=== PATIENT | male | born 1945 | race Caucasian/White ===

== ENCOUNTER → 2023-05-26 06:22 | Day surgery (SDC) | payer MEDICARE, BC, SELFPAY | LOC: GI 06:22 | PROVIDERS: ATTENDING PHYSICIAN Internal Medicine Gastroenterology; FAMILY PHYSICIAN Family Medicine | DX: R19.4 Change in bowel habit (principal); K64.0 First degree hemorrhoids; K57.30 Diverticulosis of large intestine without perforation or abscess without bleeding; R13.10 Dysphagia, unspecified; R10.13 Epigastric pain; K31.89 Other diseases of stomach and duodenum; D12.2 Benign neoplasm of ascending colon; K29.50 Unspecified chronic gastritis without bleeding; K22.89 Other specified disease of esophagus | CPT/HCPCS: 45380; 43239; 88305; 88342 ==

== ENCOUNTER → 2023-05-29 15:29 | Outpatient (REF) | payer MEDICARE, BC, SELFPAY ==
[2023-05-29 17:04] LABS: IgA 330 mg/dl (70-400); IgG 1198 mg/dl (700-1600); IgM 155 mg/dl (40-230)
[2023-05-29 19:08] LABS: Hepatitis B Surface Antigen Negative (Negative)
[2023-05-29 19:27] LABS: Hepatitis B Core Ab, Total Negative (Negative); Hepatitis B Surface Antibody Negative; Hepatitis C Antibody Negative (Negative)
[2023-05-29 20:39] LABS: Hepatitis A Antibody, Total Negative (Negative)
[2023-05-31 18:43] LABS: Ceruloplasmin 24 mg/dL (15-30)
[2023-05-31 18:46] LABS: Alpha-1-Antitrypsin 156 mg/dL (90-200)
[2023-05-31 19:12] LABS: F-Actin Antibody IgG 6 Units (0-19); Mitochondrial M2 Ab, IgG 3.8 Units (0.0-24.9)
[2023-06-01 00:20] LABS: LKM-1 Ab (IgG) 1.3 U (0.0-24.9)
[2023-06-01 02:10] LABS: ANA, IgG Reflex to HEp-2 None Detected (None Detected)
== END ==
LOC: REG 15:29
PROVIDERS: ATTENDING PHYSICIAN Internal Medicine Gastroenterology; FAMILY PHYSICIAN Family Medicine
DX: K76.0 Fatty (change of) liver, not elsewhere classified (principal)
CPT/HCPCS: 36415; 82103; 82390; 82784; 86015; 86038; 86376; 86381; 86704; 86706; 86708; 86803; 87340

== ENCOUNTER → 2023-08-06 10:58 | Outpatient (REF) | payer MEDICARE, BC, SELFPAY | LOC: DHCBC/DCA 10:58 | PROVIDERS: ATTENDING PHYSICIAN Internal Medicine Cardiovascular Disease; FAMILY PHYSICIAN Family Medicine | DX: R06.00 Dyspnea, unspecified (principal); R07.81 Pleurodynia; I44.0 Atrioventricular block, first degree | CPT/HCPCS: 78452; 93017; A9500 ==

== ENCOUNTER → 2023-08-07 09:35 | Outpatient (REF) | payer MEDICARE, BC, SELFPAY | LOC: RCS 09:35 | PROVIDERS: ATTENDING PHYSICIAN Internal Medicine Cardiovascular Disease; FAMILY PHYSICIAN Family Medicine | DX: R06.00 Dyspnea, unspecified (principal) | CPT/HCPCS: 93225; 93226 ==

== ENCOUNTER → 2023-12-02 11:42 | Outpatient (REF) | payer MEDICARE, BC, SELFPAY ==
[2023-12-02 14:04] LABS: Urine Albumin Negative (Neg - Trace); Urine Bilirubin Negative (Negative); Urine Character Clear (Clear); Urine Color Yellow; Urine Glucose Negative (Negative); Urine Ketone Negative (Negative); Urine Leukocyte Negative (Negative); Urine Nitrite Negative (Negative); Urine Occult Blood Negative (Negative); Urine Specific Gravity 1.015 (<1.030); Urine Urobilinogen Negative (Neg - 1+)
[2023-12-02 14:06] LABS: % Basophils 0.7 % (0-2); % Eosinophils 1.5 % (0-6); % Immature Granulocytes 0.1 % (0-0.5); % Lymphocytes 20.3 % (20.5-51.1); % Monocytes 9.2 % (1.7-9.3); % Neutrophils 68.2 % (42.2-75.2); Absolute Basophils 0.1 10^3/uL (0-0.2); Absolute Eosinophils 0.1 10^3/uL (0-0.7); Absolute Lymphocytes 1.4 10^3/uL (1.2-3.4); Absolute Monocytes 0.6 10^3/uL (0.1-0.6); Absolute Neutrophils 4.7 10^3/uL (1.4-6.5); Hematocrit 41.2 % (39.0-52.0); Hemoglobin 14.6 g/dL (13.0-18.0); Mean Corp Hgb Conc. 35.4 g/dL (33.0-37.0); Mean Corpuscular Hgb 29.7 pg (27.0-31.0); Mean Corpuscular Volume 83.9 fL (80.0-94.0); Mean Platelet Volume 10.7 fL (7.4-10.4); Nucleated Red Blood Cells % 0 % (-); Platelet Count 243 10^3/uL (130-400); Red Blood Cell Count 4.91 10^6/uL (4.70-6.10); Red Cell Dist. Width 12.4 % (11.5-14.5); White Blood Cell Count 6.9 10^3/uL (4.8-10.8)
[2023-12-02 14:26] LABS: ALT (SGPT) 22 U/L (0-50); AST (SGOT) 32 U/L (17-59); Albumin 4.4 g/dl (3.5-5.0); Alkaline Phosphatase 63 U/L (38-126); Blood Urea Nitrogen 18 mg/dl (9-20); Calcium 9.7 mg/dl (8.4-10.2); Carbon Dioxide 27 mmol/L (22-30); Chloride 106 mmol/L (98-107); Glucose 96 mg/dl (70-99); HDL Cholesterol 54 mg/dl; LDL Cholesterol, Calculated 75 mg/dl; Potassium 4.3 mmol/L (3.5-5.1); Sodium 141 mmol/L (135-145); Total Bilirubin 1.1 mg/dl (0.2-1.3); Total Cholesterol 144 mg/dl (50-199); Total Protein 7.2 g/dl (6.3-8.2); Triglyceride 76 mg/dl (10-149); Very Low Density Lipoprotein 15 mg/dl (0-30); eGFR > 60.00
[2023-12-02 14:56] LABS: PSA, Total - Diagnostic < 0.06 ng/ml (0.0-4.0); TSH 1.49 uIU/ml (0.47-4.68)
[2023-12-03 07:37] LABS: Glycohemoglobin (HgbA1c) 5.9 % (4.0-5.6)
== END ==
LOC: REG 11:42
PROVIDERS: ATTENDING PHYSICIAN Family Medicine; FAMILY PHYSICIAN Surgery
DX: C61 Malignant neoplasm of prostate (principal); Z00.00 Encounter for general adult medical examination without abnormal findings; I10 Essential (primary) hypertension; E78.2 Mixed hyperlipidemia; Z85.46 Personal history of malignant neoplasm of prostate; I67.9 Cerebrovascular disease, unspecified; I70.0 Atherosclerosis of aorta; R73.01 Impaired fasting glucose; K21.9 Gastro-esophageal reflux disease without esophagitis; Z13.39 Encounter for screening examination for other mental health and behavioral disorders; Z13.31 Encounter for screening for depression; Z71.89 Other specified counseling; E66.09 Other obesity due to excess calories; Z68.32 Body mass index [BMI] 32.0-32.9, adult; Z76.89 Persons encountering health services in other specified circumstances; Z23 Encounter for immunization; R19.4 Change in bowel habit; R13.0 Aphagia
CPT/HCPCS: 36415; 80053; 80061; 81003; 83036; 84153; 84443; 85025

== ENCOUNTER → 2024-04-09 13:27 | Outpatient (REF) | payer MEDICARE, BC, SELFPAY ==
[2024-04-09 14:35] LABS: % Basophils 0.9 % (0-2); % Eosinophils 1.2 % (0-6); % Immature Granulocytes 0.3 % (0-0.5); % Lymphocytes 17.5 % (20.5-51.1); % Monocytes 9.8 % (1.7-9.3); % Neutrophils 70.3 % (42.2-75.2); Absolute Basophils 0.1 10^3/uL (0-0.2); Absolute Eosinophils 0.1 10^3/uL (0-0.7); Absolute Lymphocytes 1.1 10^3/uL (1.2-3.4); Absolute Monocytes 0.6 10^3/uL (0.1-0.6); Absolute Neutrophils 4.5 10^3/uL (1.4-6.5); Hematocrit 43.6 % (39.0-52.0); Hemoglobin 15.4 g/dL (13.0-18.0); Mean Corp Hgb Conc. 35.3 g/dL (33.0-37.0); Mean Corpuscular Hgb 30.1 pg (27.0-31.0); Mean Corpuscular Volume 85.2 fL (80.0-94.0); Mean Platelet Volume 10.3 fL (7.4-10.4); Nucleated Red Blood Cells % 0 % (-); Platelet Count 214 10^3/uL (130-400); Red Blood Cell Count 5.12 10^6/uL (4.70-6.10); Red Cell Dist. Width 12.5 % (11.5-14.5); White Blood Cell Count 6.5 10^3/uL (4.8-10.8)
[2024-04-09 14:57] LABS: ALT (SGPT) 18 U/L (0-50); AST (SGOT) 23 U/L (17-59); Albumin 4.3 g/dl (3.5-5.0); Alkaline Phosphatase 65 U/L (38-126); Blood Urea Nitrogen 13 mg/dl (9-20); Calcium 9.4 mg/dl (8.4-10.2); Carbon Dioxide 28 mmol/L (22-30); Chloride 102 mmol/L (98-107); Glucose 102 mg/dl (70-99); HDL Cholesterol 66 mg/dl; LDL Cholesterol, Calculated 79 mg/dl; Potassium 3.7 mmol/L (3.5-5.1); Sodium 139 mmol/L (135-145); Total Cholesterol 158 mg/dl (50-199); Total Protein 6.9 g/dl (6.3-8.2); Triglyceride 67 mg/dl (10-149); Very Low Density Lipoprotein 13 mg/dl (0-30); eGFR > 60.00
[2024-04-09 16:18] LABS: Vitamin B12 466 pg/ml (239-931)
[2024-04-10 12:31] LABS: Glycohemoglobin (HgbA1c) 5.8 % (4.0-5.6)
== END ==
LOC: REG 13:27
PROVIDERS: ATTENDING PHYSICIAN Family Medicine; OTHER PHYSICIAN Internal Medicine
DX: I10 Essential (primary) hypertension (principal); E78.2 Mixed hyperlipidemia; R73.01 Impaired fasting glucose; G62.9 Polyneuropathy, unspecified; D51.9 Vitamin B12 deficiency anemia, unspecified
CPT/HCPCS: 36415; 80053; 80061; 82607; 83036; 85025

== ENCOUNTER → 2024-06-15 13:33 | Outpatient (REF) | payer MEDICARE, BC, SELFPAY ==
[2024-06-17 23:21] LABS: Gastrin 25 pg/mL (0-100)
[2024-06-18 03:12] LABS: Calcitonin 9.4 pg/mL (0.0-7.5)
== END ==
LOC: REG 13:33
PROVIDERS: ATTENDING PHYSICIAN Internal Medicine Gastroenterology; FAMILY PHYSICIAN Family Medicine
DX: R19.7 Diarrhea, unspecified (principal)
CPT/HCPCS: 36415; 82308; 82941; 84586

== ENCOUNTER → 2024-06-21 11:50 | Outpatient (REF) | payer MEDICARE, BC, SELFPAY ==
[2024-06-22 23:55] LABS: Fat, Fecal - Neutral Normal (Normal); Fat, Fecal - Split Normal (Normal)
[2024-06-23 16:50] LABS: 24 Hour Urine Total Volume 1800 mL; 5HIAA, 24 Hour Urine 5 mg/d (0-15); 5HIAA, Urine 2.8 mg/L; 5HIAA/Creatinine Ratio 2 mg/gCR (0-14); Creatinine, Urine 24 Hour 2286 mg/d (800-2100); Creatinine, Urine per Volume 127 mg/dL; Urine Collection Length 24 hr
== END ==
LOC: REG 11:50
PROVIDERS: ATTENDING PHYSICIAN Internal Medicine Gastroenterology; FAMILY PHYSICIAN Family Medicine
DX: R19.7 Diarrhea, unspecified (principal)
CPT/HCPCS: 36415; 81050; 82705; 83497

== ENCOUNTER 2024-09-23 10:28 | Emergency (ER) | payer MEDICARE, BC, SELFPAY ==
[2024-09-23 10:42] VITALS: BP 140/72
--- NOTE | 2024-09-23 12:10 | ED.GENMED ---
History of Present Illness
General
Chief Complaint: Allergic Reaction
Source: patient
Exam Limitations: none
Time Seen by Provider: 09/23/24 11:58
Nursing documentation reviewed up to this point in time: agreed with
History of Present Illness
History of Present Illness:
SEE MDM
Past History
Past History
ED Past Medical History: GERD, HTN, Hypercholesterolemia and Other (BPH, TIA, sarcoidosis, diverticulosis)
ED Past Surgical History: Orthopedic (left knee replacement) and Other (hernia, neck biopsy)
Social History
Tobacco: Non-smoker
Alcohol: Occasional
Drug: None
Personal:
Living: with family
Employment: Employed
Review of Systems
Review of Systems
Allergies reviewed?: Yes
All Other Systems: Not applicable
Phy Exam
Physical Exam
Physical Exam:
GENERAL: Alert , in no apparent distress, very talkative speaking full sentences, no dyspnea
EYE: pupils equal and reactive
NECK: Supple
ENT: o/p clr, mmm.
CARDIAC: Regular rate and rhythm .
LUNGS: Clear breath sounds bilaterally, no acute respiratory distress, no wheezes/rales/rhonchi
ABDOMEN: Soft, without focal tenderness, no r/g, no cvat, normal bowel sounds
NEUROLOGICAL: Alert and oriented, no focal neuro deficits
SKIN: Warm and dry, skin intact. no hives
MUSCULOSKELETAL: No edema, well perfused. neg tenisha's sign
PSYCH: Normal and appropriate interaction.
Course
Orders/Labs/Results
Orders:
Orders
09/23/24 10:46
Electrocardiogram (*1) Urgent
Reason for Study: Chest Pain
09/23/24 10:47
EKG- Treatment ONCE
09/23/24 12:48
Complete Blood Count/With Diff Urgent
Comprehensive Metabolic Panel Urgent
D-Dimer Urgent
NT-proBNP Urgent
Troponin I Urgent
09/23/24 13:53
CR Chest - 2 Views Urgent
Comment:
Reason For Exam: sob
Abnormal Lab Results
09/23/24
12:48
MPV 10.5 H fL
(7.4-10.4)
Monocytes % 9.7 H %
(1.7-9.3)
Chloride 113 H mmol/L
(98-107)
BUN 32 H mg/dl
(9-20)
Glucose 106 H mg/dl
(70-99)
09/23/24 12:48
09/23/24 12:48
Vital Signs
Initial and Last Documented VS:
Initial Vital Signs
Temp Pulse Resp BP Pulse Ox
36.8 C 67 20 140/72 98
09/23/24 10:42 09/23/24 10:42 09/23/24 10:42 09/23/24 10:42 09/23/24 10:42
Last Documented Vital Signs
Temp Pulse Resp BP Pulse Ox
36.8 C 57 16 140/72 96
09/23/24 10:42 09/23/24 13:15 09/23/24 13:15 09/23/24 10:42 09/23/24 13:15
MDM/Problems Addressed
Differential Diagnosis Includes:
see mdm
MDM/Problems Addressed:
Note:
CHIEF COMPLAINT(S)
Difficulty breathing and fatigue after taking a new medication.
HISTORY OF PRESENT ILLNESS
The patient is a 78-year-old male with a history of chronic diarrhea for two years. He reports being treated by Dr. flores who recently prescribed eluxadoline (referred to as Viberzi) for this condition.. The patient began taking eluxadoline as
directed, twice daily after meals, beginning with one dose last night.
After taking the second dose at approximately 8:38 AM today, the patient experienced sudden fatigue and difficulty breathing, describing it as 'like someone took a deep breath away.' Attempts to contact [facility] and Dr. Espinoza office for advice were
unsuccessful. Eventually, the patient was advised by a community relations representative over the phone to discontinue eluxadoline and seek emergency medical evaluation.
Upon presentation, the patient acknowledges shortness of breath, generalized weakness, and feeling cold. He has a past medical history of hypertension, hyperlipidemia, and a remote possible transient ischemic attack.
SOCIAL DETERMINANTS AFFECTING HEALTH
The patient reports frustration with pharmacy and healthcare systems, impacting his ability to efficiently address and manage his prescriptions and health concerns.
PAST MEDICAL HISTORY
- Hypertension
- Hyperlipidemia
- Possible transient ischemic attack (mini-stroke)
MEDICATIONS
- Blood pressure medications
- Cholesterol medications
- Baby aspirin (recently discontinued)
REVIEW OF SYSTEMS
- Respiratory: Shortness of breath, difficulty taking deep breaths
- General: Fatigue, feelings of being unusually cold
PHYSICAL EXAM
- Respiratory: No wheezing, lungs clear to auscultation
Nursing notes reviewed and vital signs reviewed.
PLAN
- Discontinue eluxadoline.
- Obtain blood work to rule out any cardiac events, such as a myocardial infarction.
- Chest X-ray to assess for any respiratory complications.
- Administer Benadryl if needed for allergy symptom management.
- Monitor patient for further improvement of symptoms.
DIFFERENTIAL DIAGNOSIS
The Differential Diagnosis includes, in no particular order and is not limited to:
1. Drug-induced bronchospasm
2. Allergic reaction to eluxadoline
3. Myocardial infarction
4. Acute bronchitis
5. Exacerbation of chronic obstructive pulmonary disease (COPD)
6. Pulmonary embolism
7. Pneumonia
8. Heart failure exacerbation
9. Anxiety or panic attack
10. Upper respiratory tract infection
09/23/24 - 14:13
Patients blood work is reassuring, including electrolytes and hemoglobin and troponin and d dimer. A chest x-ray was ordered to assess lung status and will be completed promptly. The patient reports improved ability to take deep breaths after
discontinuing a medication, suggesting a likely side effect. Anticipate discharge once the chest x-ray results are reviewed.
cxr indep reviewed, neg
pt feels well
trop was drawn 4 hours after sypmtoms started and pt's ysmptoms resolved
likely medication side effect
d/c home
*Pulse Oximetry
SaO2: 98
Oxygen Mode of Delivery: Room air
Patient hypoxic: no (98)
*Critical Care Note
Total Time (30-74mins, 75-104mins- exclusive of procedures): Not Applicable
ED Attending Note
-
Portions of this chart may have been created with voice recognition software.� Occasional wrong word or��sound alike� substitutions may have occurred due to the inherent limitations of voice recognition software.
Discharge Plan
Departure
Patient Disposition: Home (Routine Discharge)
Date of Disposition: 09/23/24
Time of Disposition: 14:32
Patient with high blood pressure during this ER visit?: No
Condition: Fair
Covid-19: Not Applicable
Discharge Problem:
Breath shortness, Adverse drug effect
Instructions: Adverse Drug Reactions, Adult (DC)
Prescriptions:
No Action
valsartan-hydrochlorothiazide 1 EACH tablet
1 ea PO QPM
atorvastatin 20 MG tablet
20 mg PO QPM
amlodipine 5 MG tablet
5 mg PO DAILY
naproxen sodium [Aleve] 220 MG tablet
440 mg PO DAILYPRN PRN (Reason: knee pain)
[employer] Cream
1 applic topical DAILYPRN PRN (Reason: leg cramps)
aspirin 81 MG tablet,delayed release (DR/EC)
81 mg PO DAILY Qty: 30 0RF
valsartan-hydrochlorothiazide 1 EACH tablet
1 ea PO DAILY Qty: 30 0RF
metronidazole 500 MG tablet
500 mg PO TID Qty: 30 0RF
ondansetron [Zofran ODT] 8 MG tablet,disintegrating
8 mg PO TID PRN (Reason: nausea/vomiting) Qty: 20 0RF
levofloxacin 500 MG tablet
500 mg PO DAILY Qty: 10 0RF
oxycodone 5 MG tablet
5 mg PO Q4HPRN PRN (Reason: pain) Qty: 10 0RF
Referrals:
Gerard Dykes DO [Family Provider, Family Practice] - Follow up in 2-3 days
Activity Restrictions/Additional Instructions:
Your trouble breathing was probably related to the new medication that you tried. You now are not able to take that. Please call your GI doctor for further instructions regarding your chronic diarrhea. We did check out your heart and there were
no signs of a heart attack. Your chest x-ray was clear. Please have a low threshold for return to the ER for worsening symptoms like worsening shortness of breath, chest pain with walking, fever or chills, passing out, wheezing etc.
Interventions
Interventions:
*Risk Screen - Suicide Last Done: 09/23/24 10:45
*General Assessment Last Done: 09/23/24 10:45
*Neglect/Abuse Screening Last Done: 09/23/24 10:45
*ED- Fall Risk Assessment Last Done: 09/23/24 13:05
*ED COVID-19 Vaccine History Last Done: 09/23/24 13:05
ED- Cardiac Assessment Last Done: 09/23/24 13:01
ED- Pulmonary Assessment Last Done: 09/23/24 13:01
ED-Skin Assessment Last Done: 09/23/24 13:01
Discharge Date and Time
Print Language: [id number]
[2024-09-23 13:02] LABS: Hematocrit 41.8 % (39.0-52.0); Hemoglobin 14.4 g/dL (13.0-18.0); Mean Corp Hgb Conc. 34.4 g/dL (33.0-37.0); Mean Corpuscular Volume 87.3 fL (80.0-94.0); Nucleated Red Blood Cells % 0 % (-); Platelet Count 211 10^3/uL (130-400); Red Cell Dist. Width 12.6 % (11.5-14.5)
[2024-09-23 13:17] LABS: ALT (SGPT) 17 U/L (0-50); AST (SGOT) 21 U/L (17-59); Albumin 4.3 g/dl (3.5-5.0); Alkaline Phosphatase 45 U/L (38-126); Blood Urea Nitrogen 32 mg/dl (9-20); Calcium 9.7 mg/dl (8.4-10.2); Carbon Dioxide 24 mmol/L (22-30); Chloride 113 mmol/L (98-107); Glucose 106 mg/dl (70-99); Potassium 4.3 mmol/L (3.5-5.1); Sodium 141 mmol/L (135-145); Total Protein 7.2 g/dl (6.3-8.2); eGFR > 60.00
[2024-09-23 13:27] LABS: Troponin I < 0.012 ng/ml
[2024-09-23 13:28] LABS: D-Dimer 0.40 ug/mlFEU (0.00-0.50)
[2024-09-23 14:31] VITALS: BP 150/79
== END 2024-09-23 15:03 | disposition home or self-care (01) ==
LOC: EMR 10:28
PROVIDERS: Physician Assistant; EMERGENCY PHYSICIAN Emergency Medicine; FAMILY PHYSICIAN Family Medicine
DX: T78.40XA Allergy, unspecified, initial encounter (principal); Y92.9 Unspecified place or not applicable; K21.9 Gastro-esophageal reflux disease without esophagitis; I10 Essential (primary) hypertension; E78.00 Pure hypercholesterolemia, unspecified; N40.0 Benign prostatic hyperplasia without lower urinary tract symptoms; D86.9 Sarcoidosis, unspecified; Z86.73 Personal history of transient ischemic attack (TIA), and cerebral infarction without residual deficits; Z96.652 Presence of left artificial knee joint
CPT/HCPCS: 99283; 71046; 80053; 83880; 84484; 85025; 85379; 93005

== ENCOUNTER → 2024-12-16 11:11 | Outpatient (REF) | payer MEDICARE, BC, SELFPAY ==
[2024-12-16 12:57] LABS: Glycohemoglobin (HgbA1c) 5.9 % (4.0-5.6)
[2024-12-16 13:08] LABS: ALT (SGPT) 20 U/L (0-50); AST (SGOT) 25 U/L (17-59); Albumin 4.4 g/dl (3.5-5.0); Alkaline Phosphatase 51 U/L (38-126); Blood Urea Nitrogen 29 mg/dl (9-20); Calcium 9.3 mg/dl (8.4-10.2); Carbon Dioxide 25 mmol/L (22-30); Chloride 110 mmol/L (98-107); Glucose 111 mg/dl (70-99); HDL Cholesterol 50 mg/dl; LDL Cholesterol, Calculated 65 mg/dl; Potassium 4.8 mmol/L (3.5-5.1); Sodium 141 mmol/L (135-145); Total Protein 7.2 g/dl (6.3-8.2); Very Low Density Lipoprotein 13 mg/dl (0-30); eGFR > 60.00
== END ==
LOC: REG 11:11
PROVIDERS: ATTENDING PHYSICIAN Internal Medicine Gastroenterology; FAMILY PHYSICIAN Family Medicine
DX: R19.7 Diarrhea, unspecified (principal); I10 Essential (primary) hypertension; E78.2 Mixed hyperlipidemia; G62.9 Polyneuropathy, unspecified; R73.03 Prediabetes; K76.0 Fatty (change of) liver, not elsewhere classified; E34.9 Endocrine disorder, unspecified
CPT/HCPCS: 36415; 80053; 80061; 83036; 84155; 84165

== ENCOUNTER → 2024-12-30 13:35 | Outpatient (REF) | payer MEDICARE, BC, SELFPAY | LOC: RAD 13:35 | PROVIDERS: ATTENDING PHYSICIAN Internal Medicine Gastroenterology; FAMILY PHYSICIAN Family Medicine | DX: R19.7 Diarrhea, unspecified (principal); R10.32 Left lower quadrant pain; E34.9 Endocrine disorder, unspecified | CPT/HCPCS: 74177; 76536; Q9967 ==